=== PATIENT | male | born 1950 | race Caucasian/White ===

== ENCOUNTER 2017-03-12 06:17 | Day surgery (SDC) | payer OTHER ==
[~2017-03-12] VITALS: Ht 180.3 cm; Wt 97.4 kg
[~2017-03-12 06:17] MED LIST: Aspirin EC81 MG; Aspirin EC81 MG PO; BACL10; ESOM20; HYDACE5; OXYC10TA19; OXYC1TAB11; PRED5; RANI150 PO
[2017-10-19] MEDS ORDERED: Nexium40 MG PO (13:49)
[2017-10-19] MEDS ORDERED: PRED5 PO (13:50)
[2017-10-19] MEDS ORDERED: VITAMIN D31000 UNIT PO (13:51)
[2017-10-19] MEDS ORDERED: Zantac150 MG PO (13:51)
[2017-10-27] MEDS ORDERED: OXYC10ER (10:27)
== END 2017-03-12 09:50 | disposition home or self-care (01) ==
LOC: ORSCSDS 06:17
PROVIDERS: Orthopaedic Surgery
PROC: 0SBD4ZZ Excision of Left Knee Joint, Percutaneous Endoscopic Approach (ICD-10-PCS; principal; 2017-03-12 07:30)
DX: S83.242A Other tear of medial meniscus, current injury, left knee, initial encounter (principal); M67.462 Ganglion, left knee
CPT/HCPCS: J0171; J0690; J2250; J2405; J3010; J7120

== ENCOUNTER → 2017-04-16 | Outpatient (CLI) | payer OTHER ==
[~2017-04-16] MED LIST changes: +Nexium40 MG PO; +OXYC10ER; +PRED5 PO; +VITAMIN D31000 UNIT PO; +Zantac150 MG PO
== END | disposition home or self-care (01) ==
LOC: LAB 07:28
DX: N39.0 Urinary tract infection, site not specified (principal)
CPT/HCPCS: 87077; 87086; 87147; 87186

== ENCOUNTER 2017-12-10 06:19 | Day surgery (SDC) | payer OTHER ==
[~2017-12-10] VITALS: Ht 434.3 cm; Wt 95.4 kg
== END 2017-12-10 10:15 | disposition home or self-care (01) ==
LOC: ORSCSDS 06:19
PROVIDERS: Orthopaedic Surgery
PROC: 0SBD4ZZ Excision of Left Knee Joint, Percutaneous Endoscopic Approach (ICD-10-PCS; principal; 2017-12-10 07:30)
DX: M23.222 Derangement of posterior horn of medial meniscus due to old tear or injury, left knee (principal); M25.862 Other specified joint disorders, left knee; M94.262 Chondromalacia, left knee; K21.9 Gastro-esophageal reflux disease without esophagitis; Z79.899 Other long term (current) drug therapy
CPT/HCPCS: J0171; J0690; J2250; J2370; J3010; J7120

== ENCOUNTER → 2018-11-09 | Outpatient (CLI) | payer OTHER | END | disposition home or self-care (01) | LOC: LAB EV 18:21 → LAB SHORT 18:21 | DX: N39.0 Urinary tract infection, site not specified (principal) | CPT/HCPCS: 87077; 87086; 87186 ==

== ENCOUNTER → 2019-04-29 | Outpatient (CLI) | payer OTHER ==
[2019-04-29 16:51] LABS: BASOPHILS ABSOLUTE AUTO 0.02 K/mm3 (0.00-0.23); BASOPHILS PERCENT AUTO 0 % (0-2); EOSINOPHILS ABSOLUTE AUTO 0.05 K/mm3 (0.00-0.68); EOSINOPHILS PERCENT AUTO 1 % (0-6); Hematocrit 39.7 % (37.0-53.0); Hemoglobin 13.3 g/dL (13.5-17.5); IMMATURE GRAN ABSOLUTE AUTO 0.03 K/mm3 (0.00-0.10); IMMATURE GRAN PERCENT AUTO 0 % (0-1); LYMPHOCYTES ABSOLUTE AUTO 1.47 K/mm3 (0.84-5.20); LYMPHOCYTES PERCENT AUTO 14 % (21-46); MONOCYTES ABSOLUTE AUTO 1.15 K/mm3 (0.16-1.47); MONOCYTES PERCENT AUTO 11 % (4-13); Mean Corpuscular HGB 30.9 pg (26.0-34.0); Mean Corpuscular HGB Conc 33.5 g/dL (31.5-36.5); Mean Corpuscular Volume 92 fL (80-100); Mean Platelet Volume 9.2 fL (9.1-12.4); NEUTROPHILS ABSOLUTE AUTO 7.57 K/mm3 (1.96-9.15); NEUTROPHILS PERCENT AUTO 74 % (41-73); Platelet Count 262 K/mm3 (150-400); RDW Coefficient Variation 12.7 % (11.7-14.2); RDW Standard Deviation 42.6 fL (35.1-46.3); White Blood Cell Count 10.29 K/mm3 (4.00-11.30)
[2019-04-29 17:00] LABS: Albumin, Blood 3.5 g/dL (3.4-5.0); Albumin/Globulin Ratio 0.7 (0.8-1.8); Bilirubin, Total 1.3 mg/dL (0.1-1.0); Bun/Creatinine Ratio 14.2 (12.0-20.0); Calcium, Blood 8.9 mg/dL (8.5-10.1); Creatinine, Blood 1.55 mg/dL (0.60-1.20); Globulin, Blood 5.1 g/dL (2.2-4.0); Potassium, Blood 4.2 mmol/L (3.5-5.5); Total Protein, Blood 8.6 g/dL (6.4-8.2)
== END ==
LOC: LAB EV 16:43 → LAB SHORT 16:43
PROVIDERS: Emergency Medicine
DX: N10 Acute pyelonephritis (principal)
CPT/HCPCS: 80053; 85025; 87040; 87077; 87086; 87186

== ENCOUNTER → 2019-08-04 | Outpatient (CLI) | payer OTHER | END | disposition home or self-care (01) | LOC: LAB SHORT 16:32 → LAB 16:32 | DX: N39.0 Urinary tract infection, site not specified (principal) | CPT/HCPCS: 87077; 87086; 87147; 87186 ==

== ENCOUNTER → 2020-03-14 | Outpatient (CLI) | payer OTHER | END | disposition home or self-care (01) | LOC: PLD 07:10 | DX: R30.9 Painful micturition, unspecified (principal) | CPT/HCPCS: 87077; 87086; 87186 ==

== ENCOUNTER 2021-01-13 12:30 | Day surgery (SDC) | payer OTHER ==
[~2021-01-13] VITALS: Ht 180.3 cm; Wt 96.8 kg
== END 2021-01-13 14:30 | disposition home or self-care (01) ==
LOC: ORSCSDS 12:30
PROVIDERS: Internal Medicine Gastroenterology
PROC: 0DB58ZX Excision of Esophagus, Via Natural or Artificial Opening Endoscopic, Diagnostic (ICD-10-PCS; principal; 2021-01-13 14:00)
PROC: 0DB88ZX Excision of Small Intestine, Via Natural or Artificial Opening Endoscopic, Diagnostic (ICD-10-PCS; principal; 2021-01-13 14:00)
DX: K22.70 Barrett's esophagus without dysplasia (principal); D64.9 Anemia, unspecified; K44.9 Diaphragmatic hernia without obstruction or gangrene; Z79.899 Other long term (current) drug therapy
CPT/HCPCS: 88305; J2704; J7120

== ENCOUNTER → 2021-07-01 | Outpatient (CLI) | payer OTHER | END | disposition home or self-care (01) | LOC: LAB SHORT 07:50 | DX: N39.0 Urinary tract infection, site not specified (principal); R30.0 Dysuria | CPT/HCPCS: 87077; 87086; 87186 ==

== ENCOUNTER → 2021-08-21 | Outpatient (CLI) | payer OTHER | END | disposition home or self-care (01) | LOC: LAB 10:26 → LAB SHORT 10:26 | DX: N39.0 Urinary tract infection, site not specified (principal) | CPT/HCPCS: 87086; 87147 ==

== ENCOUNTER → 2022-01-29 | Outpatient (CLI) | payer OTHER | LOC: LAB SHORT 11:07 → LAB 11:07 | DX: N39.0 Urinary tract infection, site not specified (principal); R33.8 Other retention of urine | CPT/HCPCS: 87077; 87086; 87186 ==

== ENCOUNTER 2022-11-02 02:56 | Inpatient (IN) | payer OTHER ==
[~2022-11-02] VITALS: Ht 180.3 cm; Wt 93.4 kg
[2022-11-02] VITALS (13 sets, daily range): BP systolic 118–141; BP diastolic 75–88
[2022-11-02 03:39] LABS: BASOPHILS ABSOLUTE AUTO 0.01 K/mm3 (0.00-0.23); BASOPHILS PERCENT AUTO 0 % (0-2); EOSINOPHILS PERCENT AUTO 0 % (0-6); Hemoglobin 14.2 g/dL (13.5-17.5); IMMATURE GRAN ABSOLUTE AUTO 0.03 K/mm3 (0.00-0.10); IMMATURE GRAN PERCENT AUTO 0 % (0-1); LYMPHOCYTES PERCENT AUTO 10 % (21-46); MONOCYTES ABSOLUTE AUTO 0.49 K/mm3 (0.16-1.47); MONOCYTES PERCENT AUTO 5 % (4-13); Mean Corpuscular HGB Conc 33.8 g/dL (31.5-36.5); Mean Corpuscular Volume 92 fL (80-100); Mean Platelet Volume 9.1 fL (9.1-12.4); NEUTROPHILS ABSOLUTE AUTO 7.76 K/mm3 (1.96-9.15); NEUTROPHILS PERCENT AUTO 85 % (41-73); Platelet Count 261 K/mm3 (150-400); RDW Coefficient Variation 12.9 % (11.7-14.2); RDW Standard Deviation 43.3 fL (35.1-46.3); Red Blood Cell Count 4.58 M/mm3 (4.30-5.90); White Blood Cell Count 9.19 K/mm3 (4.00-11.30)
[2022-11-02 03:51] LABS: Albumin, Blood 3.6 g/dL (3.4-5.0); Albumin/Globulin Ratio 0.8 (0.8-1.8); Bilirubin, Total 0.8 mg/dL (0.1-1.0); Bun/Creatinine Ratio 24.3 (12.0-20.0); Calcium, Blood 8.7 mg/dL (8.5-10.1); Creatinine, Blood 1.52 mg/dL (0.60-1.20); Globulin, Blood 4.3 g/dL (2.2-4.0); Potassium, Blood 4.4 mmol/L (3.5-5.5); Total Protein, Blood 7.9 g/dL (6.4-8.2)
--- NOTE | 2022-11-02 09:50 | NUR ---
LEFT AC IV SITE PATENT.
--- NOTE | 2022-11-02 11:50 | NUR ---
TRANSFER NOTE PT TO TRANSFER TO SURGICAL FLOOR, ROOM 224. REPORT GIVEN TO HORACIO JIMENEZ. PERSONAL BELONGINGS RETURNED.
--- NOTE | 2022-11-02 13:01 | NUR ---
11/02/22 1301 Yuli Jiménez ATTEMPTED TO STRAIGHT CATH PATIENT AFTER SURGERY, UNABLE TO GET A 14FR OR 12FR CATH IN PATIENT. DR. OLIVO AWARE. BLADDER SCANNED PATIENT-[id number].
--- NOTE | 2022-11-02 15:11 | NUR ---
TRANSFER TO 224 PT BROUGHT OUT FROM PACU TO ROOM 224, TRANSFERRED TO HIS BED VIA SLIDER SHEET AND 4 STAFF, POST OP VITALS STARTED, UPDATED PATIENT ON PLAN OF CARE FOR TODAY, DIRECTOR INTERNAL AUDIT REQUESTED [facility], PT MEDICATED PER EMAR FOR PAIN UNTIL DIRECTOR INTERNAL AUDIT CAN BE SET UP. ABD BINDER IN PLACE WITH KRISSY DRESSING UNDERNEATH.
--- NOTE | 2022-11-02 19:49 | NUR ---
ORDERS DR. OLIVO SPOKE WITH PATIENT AND ORDERED TYLENOL Q6 AND CRYOTHERAPY
[2022-11-03 03:07] VITALS: BP 114/76
--- NOTE | 2022-11-03 04:46 | NUR ---
SHIFT SUMMARY POD1 INCARCERATED HERNIA REPAIR. MIDLINE KRISSY REMAINS C/D/I, ABD BINDER IN PLACE. VSS. PT DOZED ON AND OFF T/O THE NIGHT. 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 PT REPORTS ICE AND TYLENOL HELP A LOT. PT'S ASSISTING WITH STRAIT CATH, GOOD URINE OUTPUT NOTED. PT TOLLERATING CLEAR W/O N/V. PT DID REPORTS SOME ACID REFLEX T/O THE NIGHT. PT TOLLERATED STANDING AT BEDSIDE FOR ABOUT 30 SECONDS W/FWW AND GT BELT. NO ACUTE EVENTS NOTED. PLAN TO MONITOR BOWEL FUNCTION AND MANAGE PAIN.
[2022-11-03 06:45] LABS: BASOPHILS ABSOLUTE AUTO 0.02 K/mm3 (0.00-0.23); BASOPHILS PERCENT AUTO 0 % (0-2); EOSINOPHILS ABSOLUTE AUTO 0.04 K/mm3 (0.00-0.68); EOSINOPHILS PERCENT AUTO 1 % (0-6); Hematocrit 37.1 % (37.0-53.0); Hemoglobin 12.3 g/dL (13.5-17.5); IMMATURE GRAN ABSOLUTE AUTO 0.01 K/mm3 (0.00-0.10); IMMATURE GRAN PERCENT AUTO 0 % (0-1); LYMPHOCYTES ABSOLUTE AUTO 1.14 K/mm3 (0.84-5.20); LYMPHOCYTES PERCENT AUTO 16 % (21-46); MONOCYTES ABSOLUTE AUTO 0.85 K/mm3 (0.16-1.47); MONOCYTES PERCENT AUTO 12 % (4-13); Mean Corpuscular HGB 31.3 pg (26.0-34.0); Mean Corpuscular HGB Conc 33.2 g/dL (31.5-36.5); Mean Corpuscular Volume 94 fL (80-100); Mean Platelet Volume 9.4 fL (9.1-12.4); NEUTROPHILS ABSOLUTE AUTO 5.07 K/mm3 (1.96-9.15); NEUTROPHILS PERCENT AUTO 71 % (41-73); Platelet Count 197 K/mm3 (150-400); RDW Coefficient Variation 13.4 % (11.7-14.2); RDW Standard Deviation 46.5 fL (35.1-46.3); Red Blood Cell Count 3.93 M/mm3 (4.30-5.90); White Blood Cell Count 7.13 K/mm3 (4.00-11.30)
[2022-11-03 07:09] LABS: Albumin, Blood 2.9 g/dL (3.4-5.0); Albumin/Globulin Ratio 0.7 (0.8-1.8); Bun/Creatinine Ratio 18.7 (12.0-20.0); Calcium, Blood 8.3 mg/dL (8.5-10.1); Creatinine, Blood 1.5 mg/dL (0.60-1.20); Potassium, Blood 4.5 mmol/L (3.5-5.5); Total Protein, Blood 6.9 g/dL (6.4-8.2)
[2022-11-03 07:21] VITALS: BP 126/76
[2022-11-03 14:05] VITALS: BP 126/78
[2022-11-03 19:02] VITALS: BP 132/75
[2022-11-04 04:15] VITALS: BP 105/61
--- NOTE | 2022-11-04 05:24 | NUR ---
SHIFT SUMMARY NO ACUTE CHANGES TO REPORT OVERNIGHT, PT HAS RESTED OFF AND ON T/O THE NIGHT. HE HAS BEEN UP AND AMBULATING. PT ASSIST WITH STRAIGHT CATHING PT DURING THE SHIFT. KRISSY DRESSING TO ABD C/D/I, COMPRESSED AND GREEN LIGHT FLASHING. FENTANYL FREIGHT FORWARDER IN PLACE. TYLENOL PRN FOR BREAKTHROUGH PAIN. PT TOLERATING DIET. BOWEL TONES HYPERACTIVE. NO BOWEL MOVEMENT YET, BOWEL CARE STARTED. BED IN LOWEST POSITION, CALL LIGHT WITHIN REACH.
[2022-11-04 07:03] VITALS: BP 143/87
--- NOTE | 2022-11-04 07:35 | NUR ---
AM NOTE PT IS ALERT AND ORIENTED X4, VSS, HE STATED THAT HIS GAVE HIM AM DOSE OF NEXIUM FROM HOME, HE STATED HE TOOK THE MEDICATION BUT STAFF DID NOT SCAN IN MED. CALL LIGHT IS W/IN REACH.
[2022-11-04 13:38] LABS: BASOPHILS ABSOLUTE AUTO 0.04 K/mm3 (0.00-0.23); BASOPHILS PERCENT AUTO 1 % (0-2); EOSINOPHILS ABSOLUTE AUTO 0.16 K/mm3 (0.00-0.68); EOSINOPHILS PERCENT AUTO 2 % (0-6); Hematocrit 37.4 % (37.0-53.0); Hemoglobin 12.3 g/dL (13.5-17.5); IMMATURE GRAN ABSOLUTE AUTO 0.03 K/mm3 (0.00-0.10); IMMATURE GRAN PERCENT AUTO 0 % (0-1); LYMPHOCYTES ABSOLUTE AUTO 1.43 K/mm3 (0.84-5.20); LYMPHOCYTES PERCENT AUTO 17 % (21-46); MONOCYTES PERCENT AUTO 11 % (4-13); Mean Corpuscular HGB 31.2 pg (26.0-34.0); Mean Corpuscular HGB Conc 32.9 g/dL (31.5-36.5); Mean Corpuscular Volume 95 fL (80-100); Mean Platelet Volume 9.2 fL (9.1-12.4); NEUTROPHILS ABSOLUTE AUTO 5.74 K/mm3 (1.96-9.15); NEUTROPHILS PERCENT AUTO 69 % (41-73); Platelet Count 202 K/mm3 (150-400); RDW Coefficient Variation 13.1 % (11.7-14.2); RDW Standard Deviation 45.8 fL (35.1-46.3); Red Blood Cell Count 3.94 M/mm3 (4.30-5.90)
[2022-11-04 13:56] LABS: Albumin, Blood 2.8 g/dL (3.4-5.0); Albumin/Globulin Ratio 0.7 (0.8-1.8); Bilirubin, Total 0.8 mg/dL (0.1-1.0); Bun/Creatinine Ratio 16.4 (12.0-20.0); Calcium, Blood 8.1 mg/dL (8.5-10.1); Creatinine, Blood 1.46 mg/dL (0.60-1.20); Globulin, Blood 4.1 g/dL (2.2-4.0); Total Protein, Blood 6.9 g/dL (6.4-8.2)
[2022-11-04 14:34] VITALS: BP 148/86
--- NOTE | 2022-11-04 18:47 | NUR ---
SHIFT SUMMARY PT IS ALERT AND ORIENTED X 4, HE IS ABLE TO MAKE HIS NEEDS KNOWN. HE HAS BEEN INDEPENDENT IN ROOM W/ ASSISTANCE FROM HIS . VSS. HE IS NOW ON RA AND SPO2 93-95%. HE HAS DENIED CHEST PAIN/PRESSURE, WELL NAUSEA AND FEELINGS OF SOB. SCIENCE TECHNICIAN PUMP D/C'D PER EMAR ORDERS, PLEASE SEE EMAR FOR PAIN MANAGEMENT. HE HAS AMBULATED IN [place] W/ DURING SHIFT. REPORT GIVEN TO ONCOMING RN'S.
[2022-11-04 19:37] VITALS: BP 142/81
[2022-11-05 03:32] VITALS: BP 112/83
--- NOTE | 2022-11-05 04:53 | NUR ---
SHIFT SUMMARY NO ACUTE CHANGES TO REPORT OVERNIGHT. PT SIGNIFICANT OTHER ASSISTS WITH STRAIGHT CATHING PT PRN T/O SHIFT. PT TOLERATING PO INTAKE, REPORTS MINIMAL ABD PAIN 05/22. DRESSING TO ABD C/D/I. KRISSY IN PLACE WITH SUCTION, GREEN LIGHT FLASHING. PT CONTINUES TO REPORT CONSTIPATION BUT IS PASSING GAS. BOWEL CARE STARTED. BED IN LOWEST POSITION, CALL LIGHT WITHIN REACH.
[2022-11-05 07:38] VITALS: BP 141/77
[2022-11-05 13:40] LABS: BASOPHILS ABSOLUTE AUTO 0.05 K/mm3 (0.00-0.23); BASOPHILS PERCENT AUTO 1 % (0-2); EOSINOPHILS PERCENT AUTO 1 % (0-6); Hematocrit 38.8 % (37.0-53.0); Hemoglobin 12.9 g/dL (13.5-17.5); IMMATURE GRAN ABSOLUTE AUTO 0.02 K/mm3 (0.00-0.10); IMMATURE GRAN PERCENT AUTO 0 % (0-1); LYMPHOCYTES ABSOLUTE AUTO 1.67 K/mm3 (0.84-5.20); LYMPHOCYTES PERCENT AUTO 22 % (21-46); MONOCYTES ABSOLUTE AUTO 0.72 K/mm3 (0.16-1.47); MONOCYTES PERCENT AUTO 9 % (4-13); Mean Corpuscular HGB Conc 33.2 g/dL (31.5-36.5); Mean Corpuscular Volume 93 fL (80-100); Mean Platelet Volume 9.3 fL (9.1-12.4); NEUTROPHILS ABSOLUTE AUTO 5.11 K/mm3 (1.96-9.15); NEUTROPHILS PERCENT AUTO 67 % (41-73); Platelet Count 251 K/mm3 (150-400); RDW Standard Deviation 44.4 fL (35.1-46.3); Red Blood Cell Count 4.16 M/mm3 (4.30-5.90); White Blood Cell Count 7.67 K/mm3 (4.00-11.30)
[2022-11-05 14:29] LABS: Albumin, Blood 3.2 g/dL (3.4-5.0); Albumin/Globulin Ratio 0.7 (0.8-1.8); Bilirubin, Total 0.9 mg/dL (0.1-1.0); Bun/Creatinine Ratio 16.4 (12.0-20.0); Calcium, Blood 8.7 mg/dL (8.5-10.1); Creatinine, Blood 1.4 mg/dL (0.60-1.20); Globulin, Blood 4.7 g/dL (2.2-4.0); Potassium, Blood 3.6 mmol/L (3.5-5.5); Total Protein, Blood 7.9 g/dL (6.4-8.2)
[2022-11-05 15:03] VITALS: BP 130/92
--- NOTE | 2022-11-05 16:16 | NUR ---
SHIFT SUMMARY ALERT, ORIENTED, PLEASANT, AND COOPERATIVE. ROOM AIR. NO TELE. TOLERATING FULL LIQUIDS. PASSING GAS, MULTIPLE BM'S STARTED THIS SHIFT. ABD MILD, MANAGED WITH TYLENOL. TRANSIET NAUSEA, NO MEDS. MIDLINE KRISSY WNL. SBA TO AMBULATE IN HALLS MULTIPLE TIMES PER DAY WITH FWW. S/O ATTENTIVE AND PERFORMS STRAIGHT CATH PRN. PLAN FOR DISCHARGE HOME TOMORROW.
[2022-11-05 19:09] VITALS: BP 146/79
[2022-11-06 02:30] VITALS: BP 139/80
--- NOTE | 2022-11-06 04:36 | NUR ---
SHIFT SUMMARY PT A&O X4, FOLLOWS COMMANDS APPROPRIATELY. VS WNL FOR PT. 0.5L NC PLACED WHILE SLEEPING TO RETAIN O2 >94%. NO ACUTE CHANGES OVERNIGHT. PT TOLERATING PO INTAKE. KRISSY MIDLINE, C/D/I. PT REPORTS NO PAIN OVERNIGHT. PT AMBULATE TO RESTROOM WITH WALKER, PT REPORTS PASSING BOWEL MOVEMENT COMFORTABLY. CALL LIGHT WITHIN REACH, BED IN LOWEST POSITION, WILL REPORT TO DAY NURSE.
[2022-11-06 07:33] VITALS: BP 127/80
--- NOTE | 2022-11-06 11:08 | NUR ---
DISCHARGE: VSS, PACKET PRINTED AND PT EDUCATED. PT GIVEN EXTRA MEDIPORE DRESSINGS FOR HOME. NO MEDS NEEDED TO BE FAXED. IV DC'D WNL, TIP INTACT. PT LEFT UNIT WITH CAREGIVER AT 1050
== END 2022-11-06 10:30 | disposition home or self-care (01) | DRG 354 ==
LOC: ER 02:56 → MEDS 02:57 → SURS 02:57 → MEDS 02:57 → SURS 05:29 → MEDS 07:13 → SURS 13:23
PROVIDERS: Family Medicine; Student in an Organized Health Care Education/Training Program; Surgery; ADMIT Internal Medicine
PROC: 0WUF0JZ Supplement Abdominal Wall with Synthetic Substitute, Open Approach (ICD-10-PCS; principal; 2022-11-02 10:30)
DX: K43.0 Incisional hernia with obstruction, without gangrene (principal); G61.0 Guillain-Barre syndrome; K21.9 Gastro-esophageal reflux disease without esophagitis; N18.31 Chronic kidney disease, stage 3a; R33.9 Retention of urine, unspecified; D64.89 Other specified anemias; F17.210 Nicotine dependence, cigarettes, uncomplicated; Z88.5 Allergy status to narcotic agent; Z88.8 Allergy status to other drugs, medicaments and biological substances; Z79.899 Other long term (current) drug therapy; Z85.51 Personal history of malignant neoplasm of bladder; Z98.890 Other specified postprocedural states; Z90.79 Acquired absence of other genital organ(s)
CPT/HCPCS: 36415; 74177; 80053; 83605; 83880; 85025; 94762; 96374-59; 96375; 96376; 97161; 97530; 99285-25; A9270; C1781; J0690; J1650; J2001; J2250; J2270; J2371; J2405; J2704; J3010; J7030; J7050; J7120; Q9967

== ENCOUNTER 2022-11-18 02:15 | Emergency (ER) | payer OTHER ==
[~2022-11-18] VITALS: Ht 180.3 cm; Wt 93.0 kg
[2022-11-18 04:32] LABS: BASOPHILS ABSOLUTE AUTO 0.03 K/mm3 (0.00-0.23); BASOPHILS PERCENT AUTO 0 % (0-2); EOSINOPHILS ABSOLUTE AUTO 0.04 K/mm3 (0.00-0.68); EOSINOPHILS PERCENT AUTO 1 % (0-6); Hematocrit 37.8 % (37.0-53.0); Hemoglobin 12.7 g/dL (13.5-17.5); IMMATURE GRAN ABSOLUTE AUTO 0.04 K/mm3 (0.00-0.10); IMMATURE GRAN PERCENT AUTO 1 % (0-1); LYMPHOCYTES ABSOLUTE AUTO 0.38 K/mm3 (0.84-5.20); LYMPHOCYTES PERCENT AUTO 5 % (21-46); MONOCYTES ABSOLUTE AUTO 0.14 K/mm3 (0.16-1.47); MONOCYTES PERCENT AUTO 2 % (4-13); Mean Corpuscular HGB 31.1 pg (26.0-34.0); Mean Corpuscular HGB Conc 33.6 g/dL (31.5-36.5); Mean Corpuscular Volume 93 fL (80-100); Mean Platelet Volume 9.2 fL (9.1-12.4); NEUTROPHILS ABSOLUTE AUTO 6.99 K/mm3 (1.96-9.15); NEUTROPHILS PERCENT AUTO 92 % (41-73); Platelet Count 313 K/mm3 (150-400); RDW Coefficient Variation 12.8 % (11.7-14.2); RDW Standard Deviation 43.8 fL (35.1-46.3); Red Blood Cell Count 4.08 M/mm3 (4.30-5.90); White Blood Cell Count 7.62 K/mm3 (4.00-11.30)
[2022-11-18 04:53] LABS: Albumin, Blood 3.1 g/dL (3.4-5.0); Albumin/Globulin Ratio 0.7 (0.8-1.8); Bun/Creatinine Ratio 16.4 (12.0-20.0); Creatinine, Blood 1.83 mg/dL (0.60-1.20); Globulin, Blood 4.6 g/dL (2.2-4.0); Potassium, Blood 4.4 mmol/L (3.5-5.5); Total Protein, Blood 7.7 g/dL (6.4-8.2)
[2022-11-18 05:26] LABS: Source, Urine Straight Cath
[2022-11-18 05:34] LABS: Appearance, Urine Hazy (Clear); Bilirubin, Urine Neg (Neg); Blood, Urine 2+ (Neg); Glucose Qualitative, Urine Neg (Neg); Ketones, Urine Neg (Neg); Leukocyte Esterase, Urine 2+ (Neg); Nitrite, Urine Pos (Neg); Protein, Urine Neg (Neg); Specific Gravity, Urine 1.015 (1.003-1.022); Urobilinogen, Urine NORM (Normal)
[2022-11-18 05:49] LABS: Color, Urine Pale Yellow (P-Yellow)
[2022-11-18 05:50] LABS: Bacteria Many /hpf; Red Blood Cells, Urine 0-2 /hpf (0-2); Squamous Epithelial Cells Rare /hpf (Few)
[2022-11-18] MEDS ORDERED: CEFU500T30 PO (06:51)
[2022-11-18 07:30] VITALS: BP 119/72
== END 2022-11-18 08:00 | disposition home or self-care (01) ==
LOC: ER 02:15
PROVIDERS: Student in an Organized Health Care Education/Training Program
DX: N39.0 Urinary tract infection, site not specified (principal); N18.9 Chronic kidney disease, unspecified; Z88.8 Allergy status to other drugs, medicaments and biological substances; Z88.5 Allergy status to narcotic agent; Z79.899 Other long term (current) drug therapy; K21.9 Gastro-esophageal reflux disease without esophagitis; F17.210 Nicotine dependence, cigarettes, uncomplicated
CPT/HCPCS: 80053; 81001; 83690; 85025; 87077; 87086; 87186; 96361; 96374; 99283-25; A9270; J2405; J7030

== ENCOUNTER → 2023-03-30 | Outpatient (CLI) | payer OTHER ==
[~2023-03-30] MED LIST changes: +CEFU500T30 PO
== END ==
LOC: LAB 17:12 → LAB SHORT 17:12
DX: R30.9 Painful micturition, unspecified (principal)
CPT/HCPCS: 87086

== ENCOUNTER 2023-10-11 03:13 | Emergency (ER) | payer OTHER ==
[~2023-10-11] VITALS: Ht 188 cm; Wt 81.7 kg
[2023-10-11 03:24] VITALS: BP 136/88
[2023-10-11] MEDS ORDERED: PAXLOVID 150-11 EAC1 PO (03:55)
== END 2023-10-11 03:35 | disposition home or self-care (01) ==
LOC: ER 03:13
DX: U07.1 COVID-19 (principal); N18.9 Chronic kidney disease, unspecified; Z88.8 Allergy status to other drugs, medicaments and biological substances; Z88.5 Allergy status to narcotic agent; Z79.899 Other long term (current) drug therapy; F17.210 Nicotine dependence, cigarettes, uncomplicated
CPT/HCPCS: 99283

== ENCOUNTER 2024-06-13 16:29 | Emergency (ER) | payer OTHER ==
[~2024-06-13] VITALS: Ht 180.3 cm; Wt 90.7 kg
[2024-06-13 16:58] LABS: BASOPHILS ABSOLUTE AUTO 0.04 K/mm3 (0.00-0.23); BASOPHILS PERCENT AUTO 1 % (0-2); EOSINOPHILS ABSOLUTE AUTO 0.09 K/mm3 (0.00-0.68); EOSINOPHILS PERCENT AUTO 1 % (0-6); Hematocrit 40.1 % (37.0-53.0); Hemoglobin 13.8 g/dL (13.5-17.5); IMMATURE GRAN ABSOLUTE AUTO 0.02 K/mm3 (0.00-0.10); IMMATURE GRAN PERCENT AUTO 0 % (0-1); LYMPHOCYTES ABSOLUTE AUTO 1.64 K/mm3 (0.84-5.20); LYMPHOCYTES PERCENT AUTO 20 % (21-46); MONOCYTES ABSOLUTE AUTO 0.64 K/mm3 (0.16-1.47); MONOCYTES PERCENT AUTO 8 % (4-13); Mean Corpuscular HGB 31.5 pg (26.0-34.0); Mean Corpuscular HGB Conc 34.4 g/dL (31.5-36.5); Mean Corpuscular Volume 92 fL (80-100); Mean Platelet Volume 8.9 fL (9.1-12.4); NEUTROPHILS ABSOLUTE AUTO 5.73 K/mm3 (1.96-9.15); NEUTROPHILS PERCENT AUTO 70 % (41-73); Platelet Count 231 K/mm3 (150-400); RDW Coefficient Variation 13.2 % (11.7-14.2); RDW Standard Deviation 44.6 fL (35.1-46.3); Red Blood Cell Count 4.38 M/mm3 (4.30-5.90); White Blood Cell Count 8.16 K/mm3 (4.00-11.30)
[2024-06-13 17:25] LABS: Albumin, Blood 3.9 g/dL (3.4-5.0); Albumin/Globulin Ratio 0.9 (0.8-1.8); Bilirubin, Total 1.2 mg/dL (0.1-1.0); Bun/Creatinine Ratio 18.8 (12.0-20.0); Calcium, Blood 8.9 mg/dL (8.5-10.1); Creatinine, Blood 1.81 mg/dL (0.60-1.20); Globulin, Blood 4.3 g/dL (2.2-4.0); Potassium, Blood 3.9 mmol/L (3.5-5.5); Total Protein, Blood 8.2 g/dL (6.4-8.2)
[2024-06-13 17:54] LABS: Source, Urine Clean Catch
[2024-06-13 18:05] LABS: Appearance, Urine Clear (Clear); Bilirubin, Urine Neg (Neg); Blood, Urine 2+ (Neg); Color, Urine Yellow (P-Yellow); Glucose Qualitative, Urine Neg (Neg); Ketones, Urine Neg (Neg); Leukocyte Esterase, Urine 1+ (Neg); Nitrite, Urine Neg (Neg); Protein, Urine 1+ (Neg); Specific Gravity, Urine 1.015 (1.003-1.022); Urobilinogen, Urine NORM (Normal); pH, Urine 6.5 (5.0-8.0)
[2024-06-13 18:14] LABS: Bacteria Many /hpf; Squamous Epithelial Cells Rare /hpf (Few)
[2024-06-13 19:00] VITALS: BP 131/80
== END 2024-06-13 20:55 | disposition home or self-care (01) ==
LOC: ER 16:29
PROVIDERS: Student in an Organized Health Care Education/Training Program
DX: I71.40 Abdominal aortic aneurysm, without rupture, unspecified (principal); Z88.5 Allergy status to narcotic agent; Z88.8 Allergy status to other drugs, medicaments and biological substances; K21.9 Gastro-esophageal reflux disease without esophagitis; N18.9 Chronic kidney disease, unspecified; F17.210 Nicotine dependence, cigarettes, uncomplicated
CPT/HCPCS: 74177; 80053; 81001; 83690; 85025; 87086; 93005; 93010; 99284-25; Q9967

== ENCOUNTER → 2024-06-13 | Outpatient (CLI) | payer OTHER ==
[~2024-06-13] MED LIST changes: +PAXLOVID 150-11 EAC1 PO
== END ==
LOC: LAB 12:48 → LAB SHORT 12:48
DX: T83.511A Infection and inflammatory reaction due to indwelling urethral catheter, initial encounter (principal); N39.0 Urinary tract infection, site not specified
CPT/HCPCS: 87086

== ENCOUNTER → 2024-06-26 | Outpatient (CLI) | payer OTHER ==
[2024-06-26 17:03] LABS: Appearance, Urine Cloudy (Clear); Bilirubin, Urine Neg (Neg); Blood, Urine 2+ (Neg); Glucose Qualitative, Urine Neg (Neg); Ketones, Urine Neg (Neg); Leukocyte Esterase, Urine 3+ (Neg); Nitrite, Urine Pos (Neg); Protein, Urine 1+ (Neg); Urobilinogen, Urine NORM (Normal)
[2024-06-26 17:15] LABS: Color, Urine Pale Yellow (P-Yellow)
[2024-06-26 17:17] LABS: Bacteria Many /hpf; Squamous Epithelial Cells Not Seen /hpf (Few); White Blood Cells, Urine TNTC /hpf (0-5)
[2024-06-26 18:34] LABS: Creatinine, Urine Random 52.8 mg/dL (27.00-270.00); Protein, Urine Random 21.3 mg/dL (0.0-11.9); Protein/Creat Ratio, Ur Random 0.4
== END ==
LOC: LAB 10:30 → LAB SHORT 10:30
DX: N18.30 Chronic kidney disease, stage 3 unspecified (principal)
CPT/HCPCS: 81001; 82570; 84156

== ENCOUNTER → 2025-01-31 | Outpatient (CLI) | payer OTHER | LOC: LAB SHORT 17:11 → LAB 17:11 | DX: R82.90 Unspecified abnormal findings in urine (principal) | CPT/HCPCS: 87077; 87086; 87147; 87186 ==